=== PATIENT | female | born 1970 | race Caucasian/White ===

== ENCOUNTER 2018-06-20 15:10 | Emergency (ER) | payer OTHER ==
[~2018-06-20] VITALS: Ht 152.4 cm; Wt 65.3 kg
[2018-06-20] MEDS ORDERED: SENNA-DOCUSATE1 EAC1 PO (18:31)
[2018-06-20] MEDS ORDERED: NORCO 5-325 TA1 EACH PO (18:31)
[2018-06-20] MEDS ORDERED: IBUPROFEN 600600 M1 PO (18:31)
[2018-06-20] MEDS ORDERED: NORFLEX100 MG PO (18:31)
[2018-06-20 18:58] VITALS: BP 111/60
== END 2018-06-20 18:58 | disposition home or self-care (01) ==
LOC: ER 15:10
DX: M54.5 Low back pain (principal); M54.6 Pain in thoracic spine; M54.2 Cervicalgia; V89.2XXA Person injured in unspecified motor-vehicle accident, traffic, initial encounter; Y93.89 Activity, other specified; Y92.89 Other specified places as the place of occurrence of the external cause; Y99.8 Other external cause status